=== PATIENT | male | born 1965 | race Two or more races ===

== ENCOUNTER 2024-12-05 16:51 | Inpatient (IN) | payer MEDICAID ==
[~2024-12-05] VITALS: Ht 190.5 cm; Wt 67.1 kg
[~2024-12-05 16:51] MED LIST: AMLO5TAB88 MT; ASPI-1406 MT; ATOR40TA70 MT; CHOL400D7 PO; ERGO1250 PO; FOLI-43 MT; LACO150T4 PO; MYCO250C MT; TACR1CAP2 MT; TOPI-95 MT; ZONI100C45 MT
[2024-12-05 21:26] LABS: CHLORIDE 111 mEq/L (98-107); POTASSIUM 4.4 mEq/L (3.5-5.1); SODIUM 140 mEq/L (136-145)
[2024-12-05 21:27] LABS: CALCIUM 9.7 mg/dL (8.7-10.4); CARBON DIOXIDE 17 mEq/L (21-32)
[2024-12-05 21:32] LABS: CREATININE 2.9 mg/dL (0.6-1.3); GLUCOSE 90 mg/dL (70-105); UREA NITROGEN BLOOD 29 mg/dL (9-23)
[2024-12-05 21:33] LABS: TROPONIN I HIGH SENSITIVITY 49 ng/L (3.0-53)
[2024-12-05 21:34] LABS: ALANINE AMINOTRANSFERASE 12 IU/L (10-49); ALBUMIN 4.1 g/dL (3.2-4.8); ASPARTATE AMINOTRANSFERASE 13 IU/L (<34); BILIRUBIN TOTAL 0.3 mg/dL (0.1-1.0); PROTEIN TOTAL 7.2 g/dL (6.0-8.3)
[2024-12-05] MEDS: ZONISAMIDE 100MG CAPSULE PO ONE (21:37)
[2024-12-05] MEDS: LACOSAMIDE 100MG TABLET PO SCH (21:38)
[2024-12-05] MEDS: TOPIRAMATE 25MG TABLET PO SCH (21:40)
[2024-12-05] MEDS: ACETAMINOPHEN 325MG TABLET PO ONE (23:52)
[2024-12-06] VITALS (7 sets, daily range): BP systolic 122–157; BP diastolic 85–107; PULSE 64–79; RESP 16–18; TEMP 36.1–36.9; O2SAT 97–99
[2024-12-06] MEDS ORDERED: IPRATROPIUM/ALBUTEROL 0.5-3(2.5)MG/3ML NEB HHN PRN
[2024-12-06] MEDS ORDERED: ACETAMINOPHEN 325MG TABLET PO PRN
[2024-12-06] MEDS ORDERED: ONDANSETRON HCL 4MG/2ML INJ IV PRN
[2024-12-06] MEDS ORDERED: DOCUSATE SODIUM 100MG CAPSULE PO PRN
[2024-12-06] MEDS ORDERED: MAGNESIUM/ALUMINUM HYDROXIDE/SIMETHICONE 30ML UDC PO PRN
[2024-12-06 00:42] LABS: BASOPHILS % 0.4 % (0.0-2.0); DIFFERENTIAL COMMENT 0; EOSINOPHILS % 1.4 % (0.0-5.0); HEMATOCRIT. 41.8 % (42.0-52.0); HEMOGLOBIN. 12.6 g/dL (14.0-18.0); MEAN CORPUSCULAR HEMOGLOBIN 22.6 pg (28.0-32.0); MEAN CORPUSCULAR VOLUME 75.3 fL (80.0-94.0); MEAN PLATELET VOLUME 8.7 fl (7.4-10.4); MONOCYTES % 6.7 % (2.0-8.0); NEUTROPHILS % 50.5 % (40.0-76.0); PLATELET 223 x1000/uL (130-400); RED BLOOD CELL COUNT 5.55 mill/uL (4.7-6.1); RED CELL DISTRIBUTION WIDTH 18.3 % (11.6-14.6); WHITE BLOOD COUNT 11.3 x1000/uL (4.5-11.0)
[2024-12-06 01:09] LABS: LACTATE DEHYDROGENASE 242 IU/L (120-246); VITAMIN B12 SERUM 417 pg/mL (211-911)
[2024-12-06 01:10] LABS: PHOSPHORUS 3.3 mg/dL (2.5-4.9)
[2024-12-06 02:06] LABS: PROTHROMBIN TIME 10.8 sec (9.6-11.0)
[2024-12-06 06:23] LABS: CREATINE KINASE MB FRACTION 4.5 ng/mL (0.5-3.6)
[2024-12-06] MEDS ORDERED: LORAZEPAM 2MG/ML INJ IV PRN ×2 (08:15)
[2024-12-06] MEDS: TACROLIMUS 1MG CAPSULE PO SCH (09:08)
[2024-12-06] MEDS: MYCOPHENOLATE MOFETIL 250MG CAPSULE PO SCH (09:09)
[2024-12-06] MEDS: FAMOTIDINE 20MG/2ML VIAL IV SCH (09:10)
[2024-12-06 09:58] LABS: CREATINE KINASE 156 IU/L (46-171)
[2024-12-06 15:19] LABS: *AMPHETAMINES SCREEN URINE NEGATIVE (NEGATIVE); *BARBITURATES SCREEN URINE NEGATIVE (NEGATIVE); *BENZODIAZEPINES SCREEN URINE NEGATIVE (NEGATIVE)
[2024-12-06 15:20] LABS: *COCAINE SCREEN URINE NEGATIVE (NEGATIVE); CANNABINOID URINE SCREEN PRESUMPTIVE POSITIVE (NEGATIVE); ECSTASY MDMA SCREEN URINE NEGATIVE (NEGATIVE); METHADONE URINE SCREEN NEGATIVE (NEGATIVE); OPIATES URINE SCREEN NEGATIVE (NEGATIVE); PHENCYCLIDINE URINE SCREEN NEGATIVE (NEGATIVE)
[2024-12-06 16:55] LABS: IRON 44 ug/dL (65-175)
[2024-12-06 16:56] LABS: LDL CHOLESTEROL 68 mg/dL (5-100); TRIGLYCERIDE 133 mg/dL (0-150)
[2024-12-06 16:57] LABS: CHOLESTEROL 151 mg/dL (<200); HDL CHOLESTEROL 61 mg/dL (>55)
[2024-12-06 16:58] LABS: TOTAL IRON BINDING CAPACITY 270 ug/dl (250-425)
[2024-12-06 17:09] LABS: CREATINE KINASE MB FRACTION 5.1 ng/mL (0.5-3.6)
[2024-12-06] MEDS: ASPIRIN 81MG EC TABLET PO SCH (17:50)
[2024-12-06 17:51] LABS: CLARITY URINE CLEAR (CLEAR); COLOR URINE YELLOW (YELLOW); GLUCOSE URINE NEGATIVE (NEGATIVE); KETONES URINE NEGATIVE (NEGATIVE); LEUKOCYTE ESTERASE URINE 1+ (NEGATIVE); NITRITE URINE POSITIVE (NEGATIVE); OCCULT BLOOD URINE 1+ (NEGATIVE); PH URINE 7.5 (4.5-8.0); PROTEIN URINE 1+ (NEGATIVE); SPECIFIC GRAVITY URINE 1.006 (1.005-1.030); UROBILINOGEN URINE 0.2 E.U./dL (0.2-1.0)
[2024-12-06] MEDS: ACETAMINOPHEN 325MG TABLET PO PRN (20:06)
[2024-12-06] MEDS: ATORVASTATIN CALCIUM 20MG TABLET PO SCH (21:41)
[2024-12-06 22:33] LABS: BACTERIA URINE 2+; SQUAMOUS EPITHELIAL CELL URINE 1+ /lpf (RARE/1+)
[2024-12-07] VITALS: PULSE 70
[2024-12-07 04:00] VITALS: BP 144/90; PULSE 76; RESP 19; TEMP 37; O2SAT 98
[2024-12-07 07:46] LABS: CHLORIDE 111 mEq/L (98-107); POTASSIUM 3.8 mEq/L (3.5-5.1); SODIUM 139 mEq/L (136-145)
[2024-12-07 07:47] LABS: CALCIUM 9.6 mg/dL (8.7-10.4); CARBON DIOXIDE 16 mEq/L (21-32)
[2024-12-07 07:52] LABS: CREATININE 2.7 mg/dL (0.6-1.3); GLUCOSE 82 mg/dL (70-105); TRIGLYCERIDE 69 mg/dL (0-150); TROPONIN I HIGH SENSITIVITY 41 ng/L (3.0-53); UREA NITROGEN BLOOD 30 mg/dL (9-23)
[2024-12-07 07:53] LABS: LDL CHOLESTEROL 53 mg/dL (5-100)
[2024-12-07 07:54] LABS: ALBUMIN 3.9 g/dL (3.2-4.8); CHOLESTEROL 129 mg/dL (<200); HDL CHOLESTEROL 51 mg/dL (>55); PHOSPHORUS 3.5 mg/dL (2.5-4.9)
[2024-12-07 07:57] LABS: THYROID STIMULATING HORMONE 2.46 uIU/mL (0.55-4.78)
[2024-12-07 08:00] VITALS: BP 150/93; PULSE 69; RESP 20; TEMP 36.5; O2SAT 96
[2024-12-07 08:02] LABS: BASOPHILS % 0.6 % (0.0-2.0); DIFFERENTIAL COMMENT 0; EOSINOPHILS % 2.8 % (0.0-5.0); HEMOGLOBIN. 12.3 g/dL (14.0-18.0); LYMPHOCYTES % 29.3 % (20.0-50.0); MEAN CORPUSCULAR HEMOGLOBIN 22.3 pg (28.0-32.0); MEAN CORPUSCULAR HGB CONC 30.1 g/dL (31.0-37.0); MEAN CORPUSCULAR VOLUME 74.1 fL (80.0-94.0); MEAN PLATELET VOLUME 9.1 fl (7.4-10.4); MONOCYTES % 13.8 % (2.0-8.0); NEUTROPHILS % 53.5 % (40.0-76.0); PLATELET 163 x1000/uL (130-400); RED BLOOD CELL COUNT 5.53 mill/uL (4.7-6.1); RED CELL DISTRIBUTION WIDTH 18.1 % (11.6-14.6); WHITE BLOOD COUNT 8.2 x1000/uL (4.5-11.0)
[2024-12-07] MEDS: AMLODIPINE 5MG TABLET PO SCH ×2 (08:50→16:54)
[2024-12-07 12:00] VITALS: BP 156/106; PULSE 75; RESP 20; TEMP 36.4; O2SAT 100
[2024-12-07 12:46] LABS: CLARITY URINE CLEAR (CLEAR); COLOR URINE YELLOW (YELLOW); GLUCOSE URINE NEGATIVE (NEGATIVE); KETONES URINE NEGATIVE (NEGATIVE); LEUKOCYTE ESTERASE URINE TRACE (NEGATIVE); NITRITE URINE POSITIVE (NEGATIVE); OCCULT BLOOD URINE 1+ (NEGATIVE); PROTEIN URINE TRACE (NEGATIVE); SPECIFIC GRAVITY URINE 1.005 (1.005-1.030); UROBILINOGEN URINE 0.2 E.U./dL (0.2-1.0)
[2024-12-07 13:01] LABS: *AMPHETAMINES SCREEN URINE NEGATIVE (NEGATIVE); *BARBITURATES SCREEN URINE NEGATIVE (NEGATIVE); *BENZODIAZEPINES SCREEN URINE NEGATIVE (NEGATIVE); *COCAINE SCREEN URINE NEGATIVE (NEGATIVE); METHADONE URINE SCREEN NEGATIVE (NEGATIVE); OPIATES URINE SCREEN NEGATIVE (NEGATIVE); PHENCYCLIDINE URINE SCREEN NEGATIVE (NEGATIVE)
[2024-12-07 13:02] LABS: CANNABINOID URINE SCREEN PRESUMPTIVE POSITIVE (NEGATIVE); ECSTASY MDMA SCREEN URINE NEGATIVE (NEGATIVE)
[2024-12-07] MEDS ORDERED: TACR1CAP2 MT (13:02)
[2024-12-07] MEDS ORDERED: AMLO5TAB88 MT (13:02)
[2024-12-07] MEDS ORDERED: ASPI-1406 MT (13:02)
[2024-12-07] MEDS ORDERED: ATOR40TA70 MT (13:02)
[2024-12-07] MEDS ORDERED: MYCO250C MT (13:02)
[2024-12-07] MEDS: SODIUM BICARBONATE 650MG TABLET PO SCH (13:57)
[2024-12-07 14:12] LABS: RBC URINE 0-2 /hpf (0-2); SQUAMOUS EPITHELIAL CELL URINE NONE SEEN /lpf (RARE/1+)
[2024-12-07 14:13] LABS: BACTERIA URINE 1+; YEAST URINE NONE SEEN
[2024-12-07] MEDS: HYDRALAZINE 20MG/ML VIAL IV PRN (15:21)
[2024-12-07] MEDS: CLONIDINE 0.1MG TABLET PO NR (16:30)
[2024-12-07 17:36] VITALS: BP 141/101; PULSE 101; TEMP 97.8; O2SAT 99
== END 2024-12-07 13:00 | disposition home or self-care (01) | DRG 53 ==
LOC: ER 16:51 → EDBEDREQ 20:10 → 5WST 22:52 → EDBEDREQ 23:07
PROVIDERS: ADMIT Hospitalist; ATTEND Hospitalist
DX: G40.909 Epilepsy, unspecified, not intractable, without status epilepticus (principal); N17.0 Acute kidney failure with tubular necrosis; D84.9 Immunodeficiency, unspecified; E11.22 Type 2 diabetes mellitus with diabetic chronic kidney disease; I12.9 Hypertensive chronic kidney disease with stage 1 through stage 4 chronic kidney disease, or unspecified chronic kidney disease; Z94.0 Kidney transplant status; F03.90 Unspecified dementia, unspecified severity, without behavioral disturbance, psychotic disturbance, mood disturbance, and anxiety; E87.20 Acidosis, unspecified; N18.9 Chronic kidney disease, unspecified; R79.89 Other specified abnormal findings of blood chemistry; R80.9 Proteinuria, unspecified; Z88.6 Allergy status to analgesic agent; Z91.148 Patient's other noncompliance with medication regimen for other reason
CPT/HCPCS: 36415; 71045; 80048; 80053; 80061; 80197; 80305; 80320; 80339; 81003; 82040; 82542; 82550; 82553; 82607; 82728; 83540; 83550; 83605; 83615; 83735; 84100; 84443; 84484; 85025; 93005; 95816; 99285; J0360; J3490; J7507; J7517; G0480

== ENCOUNTER 2025-04-08 14:17 | Emergency (ER) | payer MEDICAID ==
[~2025-04-08] VITALS: Ht 182.9 cm; Wt 72.0 kg
[~2025-04-08 14:17] MED LIST changes: -TOPI-95 MT
[2025-04-08 14:20] VITALS: O2SAT 100
[2025-04-08 15:36] LABS: BASOPHILS % 0.3 % (0.0-2.0); EOSINOPHILS % 0.3 % (0.0-5.0); HEMATOCRIT. 38.7 % (42.0-52.0); HEMOGLOBIN. 11.6 g/dL (14.0-18.0); LYMPHOCYTES % 10.4 % (20.0-50.0); MEAN PLATELET VOLUME 8.4 fl (7.4-10.4); MONOCYTES % 9.6 % (2.0-8.0); NEUTROPHILS % 79.4 % (40.0-76.0); PLATELET 139 x1000/uL (130-400); RED BLOOD CELL COUNT 5.23 mill/uL (4.7-6.1); RED CELL DISTRIBUTION WIDTH 18.0 % (11.6-14.6)
[2025-04-08 15:48] LABS: UREA NITROGEN BLOOD 35.0 mg/dL (9-23)
[2025-04-08 15:56] LABS: CREATININE 3.6 mg/dL (0.6-1.3)
[2025-04-08] MEDS ORDERED: LACO150T4 PO (19:13)
[2025-04-08 19:36] VITALS: BP 127/88; PULSE 78; RESP 14; TEMP 36.8; O2SAT 100
== END 2025-04-08 22:39 | disposition home or self-care (01) ==
LOC: ER 14:17
DX: R56.9 Unspecified convulsions (principal); I10 Essential (primary) hypertension; Z86.73 Personal history of transient ischemic attack (TIA), and cerebral infarction without residual deficits; Z79.899 Other long term (current) drug therapy; Z88.6 Allergy status to analgesic agent
CPT/HCPCS: 80048; 85025; 36415; 80339; 93005; 99285; Z7610 ×2

== ENCOUNTER 2025-04-14 20:02 | Inpatient (IN) | payer MEDICAID ==
[~2025-04-14] VITALS: Ht 182.9 cm; Wt 54.6 kg
[~2025-04-14 20:02] MED LIST changes: -CHOL400D7 PO; -ERGO1250 PO; -FOLI-43 MT; -LACO150T4 PO; +SODI650T PO; -ZONI100C45 MT; +ZONI100C45 PO
[2025-04-14 21:11] LABS: BASOPHILS % 0.3 % (0.0-2.0); EOSINOPHILS % 1.3 % (0.0-5.0); HEMATOCRIT. 42.2 % (42.0-52.0); HEMOGLOBIN. 13.1 g/dL (14.0-18.0); LYMPHOCYTES % 27.6 % (20.0-50.0); MEAN PLATELET VOLUME 8.2 fl (7.4-10.4); MONOCYTES % 8.1 % (2.0-8.0); NEUTROPHILS % 62.7 % (40.0-76.0); PLATELET 199 x1000/uL (130-400); RED BLOOD CELL COUNT 5.85 mill/uL (4.7-6.1); RED CELL DISTRIBUTION WIDTH 17.5 % (11.6-14.6)
[2025-04-14 21:23] LABS: INR 1.0
[2025-04-14 21:26] LABS: CREATININE 3.4 mg/dL (0.6-1.3); TROPONIN I HIGH SENSITIVITY 53 ng/L (3.0-53)
[2025-04-14 21:27] LABS: UREA NITROGEN BLOOD 38 mg/dL (9-23)
[2025-04-14 21:28] LABS: ASPARTATE AMINOTRANSFERASE 16 IU/L (<34); BILIRUBIN DIRECT 0.1 mg/dL (<=3.0)
[2025-04-14 21:29] LABS: BILIRUBIN TOTAL 0.3 mg/dL (0.1-1.0); PROTEIN TOTAL 7.8 g/dL (6.0-8.3)
[2025-04-15 00:51] LABS: TROPONIN I HIGH SENSITIVITY 64 ng/L (3.0-53)
[2025-04-15] MEDS ORDERED: DEXTROSE 50% WATER 50ML SYRINGE IV PRN (01:30)
[2025-04-15] MEDS ORDERED: IPRATROPIUM/ALBUTEROL 0.5-3(2.5)MG/3ML NEB HHN PRN (01:30)
[2025-04-15] MEDS ORDERED: ONDANSETRON HCL 4MG/2ML INJ IV PRN (01:30)
[2025-04-15] MEDS: ASPIRIN 325MG EC TABLET PO NR (01:32)
[2025-04-15] MEDS: ENOXAPARIN 60MG/0.6ML SYR SUBCUT SCH (01:34)
[2025-04-15] MEDS ORDERED: HYDRALAZINE 20MG/ML VIAL IV PRN (02:00)
[2025-04-15 02:02] LABS: PHOSPHORUS 4.0 mg/dL (2.5-4.9)
[2025-04-15] MEDS: ACETAMINOPHEN 325MG TABLET PO PRN (03:01)
[2025-04-15 03:26] VITALS: BP 120/86; PULSE 79; RESP 15; TEMP 36.418
[2025-04-15] MEDS: BLOOD SUGAR DIAGNOSTIC STRIP TEST SCH (06:50)
[2025-04-15] MEDS: SODIUM CHLORIDE 0.9% 1,000 ML IV SCH (07:14)
[2025-04-15 07:59] LABS: CLARITY URINE CLEAR (CLEAR); COLOR URINE YELLOW (YELLOW); GLUCOSE URINE NEGATIVE (NEGATIVE); KETONES URINE NEGATIVE (NEGATIVE); LEUKOCYTE ESTERASE URINE TRACE (NEGATIVE); NITRITE URINE NEGATIVE (NEGATIVE); OCCULT BLOOD URINE TRACE (NEGATIVE); PH URINE 7.0 (4.5-8.0); PROTEIN URINE 1+ (NEGATIVE); SPECIFIC GRAVITY URINE 1.008 (1.005-1.030); UROBILINOGEN URINE 0.2 E.U./dL (0.2-1.0)
[2025-04-15 08:00] VITALS: BP 111/89; PULSE 103; RESP 20; TEMP 36.5; O2SAT 100
[2025-04-15 08:07] LABS: *AMPHETAMINES SCREEN URINE NEGATIVE (NEGATIVE)
[2025-04-15 08:09] LABS: *BARBITURATES SCREEN URINE NEGATIVE (NEGATIVE); *BENZODIAZEPINES SCREEN URINE NEGATIVE (NEGATIVE); *COCAINE SCREEN URINE NEGATIVE (NEGATIVE); CANNABINOID URINE SCREEN PRESUMPTIVE POSITIVE (NEGATIVE); ECSTASY MDMA SCREEN URINE NEGATIVE (NEGATIVE); METHADONE URINE SCREEN NEGATIVE (NEGATIVE); OPIATES URINE SCREEN NEGATIVE (NEGATIVE); PHENCYCLIDINE URINE SCREEN NEGATIVE (NEGATIVE)
[2025-04-15] MEDS: AMLODIPINE 5MG TABLET PO SCH (09:00)
[2025-04-15] MEDS: SODIUM BICARBONATE 650MG TABLET PO SCH (09:00)
[2025-04-15 09:25] LABS: SQUAMOUS EPITHELIAL CELL URINE FEW /lpf (RARE/1+)
[2025-04-15 09:26] LABS: WBC URINE 0-2 /hpf (0-2)
[2025-04-15 09:28] LABS: BACTERIA URINE NONE SEEN; RBC URINE NONE SEEN /hpf (0-2)
[2025-04-15 09:44] LABS: CREATINE KINASE MB FRACTION 5.6 ng/mL (0.5-3.6)
[2025-04-15] MEDS: TACROLIMUS 1MG CAPSULE PO SCH (09:47)
[2025-04-15] MEDS: PANTOPRAZOLE SODIUM 40 MG/VIAL IV SCH (09:47)
[2025-04-15] MEDS: MYCOPHENOLATE MOFETIL 250MG CAPSULE PO SCH (09:48)
[2025-04-15] MEDS: ASPIRIN 81MG EC TABLET PO SCH (09:48)
[2025-04-15 10:06] LABS: TROPONIN I HIGH SENSITIVITY 80.0 ng/L (3.0-53)
[2025-04-15 12:00] VITALS: BP 111/84; PULSE 84; RESP 11; TEMP 36.4; O2SAT 100
[2025-04-15 16:00] VITALS: BP 109/83; PULSE 86; RESP 17; TEMP 36.3; O2SAT 100
[2025-04-15 16:18] VITALS: BP 109/83; PULSE 86; TEMP 97.3; O2SAT 100
[2025-04-15 18:11] LABS: CREATINE KINASE MB FRACTION 6.8 ng/mL (0.5-3.6)
[2025-04-15 18:28] LABS: TROPONIN I HIGH SENSITIVITY 57.0 ng/L (3.0-53)
[2025-04-15] MEDS ORDERED: ZONISAMIDE 100MG CAPSULE PO SCH (21:00)
[2025-04-15] MEDS ORDERED: ATORVASTATIN CALCIUM 40MG TABLET PO SCH (21:00)
[2025-04-15] MEDS ORDERED: ENOXAPARIN 30MG/0.3ML SYR SUBCUT SCH (21:00)
== END 2025-04-15 17:19 | disposition home or self-care (01) | DRG 466 ==
LOC: ER 20:02 → EDBEDREQTM 04-15 00:50 → EDBEDREQ 04-15 00:50 → EDBEDREQDT 04-15 00:50 → ENRESERV 04-15 01:29 → 3WST 04-15 02:55
PROVIDERS: ADMIT Hospitalist; ATTEND Hospitalist
DX: T86.19 Other complication of kidney transplant (principal); N17.0 Acute kidney failure with tubular necrosis; D84.9 Immunodeficiency, unspecified; I21.A1 Myocardial infarction type 2; E87.20 Acidosis, unspecified; I12.0 Hypertensive chronic kidney disease with stage 5 chronic kidney disease or end stage renal disease; N18.6 End stage renal disease; R62.7 Adult failure to thrive; E11.22 Type 2 diabetes mellitus with diabetic chronic kidney disease; F03.90 Unspecified dementia, unspecified severity, without behavioral disturbance, psychotic disturbance, mood disturbance, and anxiety; G40.909 Epilepsy, unspecified, not intractable, without status epilepticus; I49.3 Ventricular premature depolarization; Y83.0 Surgical operation with transplant of whole organ as the cause of abnormal reaction of the patient, or of later complication, without mention of misadventure at the time of the procedure; Z59.00 Homelessness unspecified; Z88.6 Allergy status to analgesic agent; Z99.2 Dependence on renal dialysis; Y92.89 Other specified places as the place of occurrence of the external cause; Z68.1 Body mass index [BMI] 19.9 or less, adult
CPT/HCPCS: 36415; 71045; 80048; 80076; 80197; 80305; 81003; 82550; 82553; 82962; 83735; 84100; 84484; 85025; 93005; 99291; A4606; J1650; J2470; J7030; J7507; J7517

== ENCOUNTER 2025-05-30 16:32 | Emergency (ER) | payer MEDICAID ==
[~2025-05-30] VITALS: Ht 182.9 cm; Wt 84.0 kg
[2025-05-30 16:38] VITALS: O2SAT 99
[2025-05-30] MEDS: LEVETIRACETAM 1000MG PREMIX 100 ML IV ONE (17:18)
[2025-05-30 17:39] LABS: BASOPHILS % 0.3 % (0.0-2.0); EOSINOPHILS % 1.2 % (0.0-5.0); HEMATOCRIT. 32.1 % (42.0-52.0); HEMOGLOBIN. 9.6 g/dL (14.0-18.0); LYMPHOCYTES % 18.6 % (20.0-50.0); MEAN PLATELET VOLUME 8.2 fl (7.4-10.4); MONOCYTES % 5.4 % (2.0-8.0); NEUTROPHILS % 74.5 % (40.0-76.0); PLATELET 280 x1000/uL (130-400); RED BLOOD CELL COUNT 4.42 mill/uL (4.7-6.1); RED CELL DISTRIBUTION WIDTH 19.0 % (11.6-14.6)
[2025-05-30 17:58] LABS: ETHANOL BLOOD < 10 mg/dL (<10); UREA NITROGEN BLOOD 54 mg/dL (9-23)
[2025-05-30 17:59] LABS: ASPARTATE AMINOTRANSFERASE 14 IU/L (<34); BILIRUBIN DIRECT < 0.1 mg/dL (<=3.0)
[2025-05-30 18:00] LABS: BILIRUBIN TOTAL 0.2 mg/dL (0.1-1.0); PROTEIN TOTAL 7.4 g/dL (6.0-8.3)
[2025-05-30 18:02] LABS: CREATININE 4.6 mg/dL (0.6-1.3)
[2025-05-30] MEDS ORDERED: KEPP500 MT (20:19)
[2025-05-30 20:20] VITALS: BP 115/81; PULSE 76; RESP 16; TEMP 36.4; O2SAT 99
[2025-06-02] MEDS ORDERED: SODI650T MT (11:45)
[2025-06-02] MEDS ORDERED: MYCO250C MT (12:59)
[2025-06-02] MEDS ORDERED: ZONI100C45 PO (12:59)
[2025-06-02] MEDS ORDERED: KEPP500 MT (12:59)
[2025-06-02] MEDS ORDERED: AMLO5TAB88 MT (12:59)
[2025-06-02] MEDS ORDERED: ASPI-1406 MT (12:59)
[2025-06-02] MEDS ORDERED: TACR1CAP2 MT (12:59)
[2025-06-02] MEDS ORDERED: SODI650T PO (12:59)
[2025-06-02] MEDS ORDERED: ATOR40TA70 MT (12:59)
== END 2025-05-30 20:50 | disposition left against medical advice (07) ==
LOC: ER 16:32 → EDBEDREQ 17:14 → ER 20:50 → CMPBEDREQ 05-31 19:26
DX: R56.9 Unspecified convulsions (principal); D72.829 Elevated white blood cell count, unspecified; E87.20 Acidosis, unspecified; I12.9 Hypertensive chronic kidney disease with stage 1 through stage 4 chronic kidney disease, or unspecified chronic kidney disease; N17.9 Acute kidney failure, unspecified; N18.9 Chronic kidney disease, unspecified; Z88.6 Allergy status to analgesic agent; Z79.899 Other long term (current) drug therapy; Z79.82 Long term (current) use of aspirin; Z79.621 Long term (current) use of calcineurin inhibitor; Z79.624 Long term (current) use of inhibitors of nucleotide synthesis; Z98.890 Other specified postprocedural states
CPT/HCPCS: 80076; 80048; 80320; 83735; 85025; 36415; 71045; 70450; 93005; 96365; 96366; 99285; J1953; G0480